=== PATIENT | female | born 1980 | race Caucasian/White ===

== ENCOUNTER 2025-09-24 19:01 | Emergency (ER) | payer OTHER ==
[~2025-09-24] VITALS: Ht 170.2 cm; Wt 102.3 kg
[2025-09-24 19:21] VITALS: TEMP 98.1
[2025-09-24] MEDS: NS (Normal Saline) 0.9% 1,000 ML IV ONE (19:27)
[2025-09-24] MEDS: FAMOTIDINE 20 MG/2 ML VIAL IVP ONE (19:27)
[2025-09-24 22:00] VITALS: BP 147/77; O2SAT 99
[2025-09-24] MEDS ORDERED: PEPC1TAB5 PO (22:08)
[2025-09-24] MEDS ORDERED: BENA25CA4 PO (22:08)
[2025-09-24] MEDS ORDERED: PRED20TA PO (22:08)
[2025-09-24] MEDS ORDERED: EPIP0.3I2 IM (22:09)
== END 2025-09-24 22:21 | disposition home or self-care (01) ==
LOC: EDBD 19:01 → M ED 19:01
DX: T78.2XXA Anaphylactic shock, unspecified, initial encounter (principal); Z91.014 Allergy to mammalian meats; Z79.52 Long term (current) use of systemic steroids; Z79.899 Other long term (current) drug therapy
CPT/HCPCS: 93005; 96361; 96374; 99285; J1308; J2919